=== PATIENT | male | born 1990 | race Caucasian/White ===

== ENCOUNTER 2025-01-25 23:44 | Emergency (ER) | payer MEDICAID ==
[~2025-01-25] VITALS: Ht 177.8 cm; Wt 210.0 kg
[2025-01-26] MEDS: ondansetron 4mg rapidly disintigrating tab PO STA (02:19)
--- NOTE | 2025-01-26 03:17 | Physician Documentation ---
History of Present Illness Chief Complaint: Vomiting Stated Complaint: VOMITTING/ANKLE PAIN Time Seen by MD: 03:15 OK to notify your PCP?: Yes Source: patient, RN/MD, RN notes reviewed, old records Mode of Arrival: POV Exam Limitations: no limitations HPI 34 year old male presents to the emergency department for complaints of vomiting and diarrhea which began today. He states that patient threw up once an hour ago but has been experiencing diarrhea 3-4 times per hour for approximately 7 hours. Additionally patient complains of left sided ankle pain that began once last week but returned this week. He denies any trauma to the area. Medication Reconciliation Allergies: Coded Allergies: amoxicillin (Verified Allergy, Mild, HIVES, 01/25/25) Scheduled PRN ONDANSETRON ODT 4mg tablet (Ondansetron Odt), 1 TAB PO Q6H PRN PRN for nausea/vomiting Past Medical History Past Medical History: Endocarditis Past Surgical History: no surgical history Smoking Status: Former smoker Alcohol Use: None Drug Use: none Review of Systems All Other Systems at this time: Reviewed and Negative ROS As stated above in the HPI, otherwise all systems are reviewed and negative. Physical Exam Vital Signs: RN Vital Signs have been reviewed: Yes, Temperature: 98.4, Source: Temporal, Heart Rate: 89, Respiratory Rate: 18, BP: 177/99, Pulse Oximetry: 18, Weight: 210.000 Oxygen Flow Rate: 0 Pulse Oximetry Reflects: adequate oxygenation Physical Exam General: The patient is well developed, well nourished, nontoxic appearing and is in no acute distress. Skin: [place], warm and dry with no rashes. HEENT: Head was normocephalic and atraumatic. Eyes - pupils equal, round, reactive to light and accommodation. Extraocular movements were intact. Conjun ctivae were nonicteric. Ears - bilateral tympanic membranes were normal. The mouth and oropharynx were clear with moist mucous membranes. There were no pharyngeal exudates or erythema. Neck: Supple and nontender. There was no jugular venous distention, lymphadenopathy, thyromegaly or masses. Chest: Clear to auscultation bilaterally without wheezes, rales or rhonchi. No accessory muscle use. No dullness to percussion. Heart: Rate regular and rhythmic. S1, S2. No murmurs. Palpation of the chest wall was normal. No rubs or thrills. Abdomen: Soft, nontender and nondistended. Positive bowel sounds. No guarding or rebound. No hepatosplenomegaly or palpable masses. Extremities: No cyanosis, clubbing or edema. The patient moves all extremities. Pulses were equal and symmetric. Neurologic: Cranial nerves II-XII were intact. Sensation was intact to light touch throughout. Motor strength was 5/5 in all four extremities. Deep tendon reflexes were intact in both upper and lower extremities. Psychologic: The patient was oriented to person, place and time. The patient demonstrated appropriate judgement and insight. Progress Results/Orders Reviewed/noted all lab results: Yes Results/Orders Completed Orders - ALONZO LEONE MD Ondansetron Disint. Tablet (Zofran Odt T (01/26/25 02:14) Medications Received in ER Medications (Trade) Dose Ordered Sig/Juan Route PRN Reason Start Time Stop Time Status Last Admin Dose Admin (Zofran ODT tablet) 4 mg ONCE STAT PO 01/26/25 02:14 01/26/25 02:15 DC 01/26/25 02:19 4 MG Vital Signs 01/25/25 23:49 Temp 98.4 Pulse 89 Resp 18 B/P (MAP) 177/99 Pulse Ox 18 O2 Flow Rate 0 Re-Evaluation Re-Evaluation : Re-Evaluation: Improved Progress Patient was seen and examined. Patient was given reassurance. Patient received Zofran as well as fluid hydration is feeling much better. Patient has no fever vomiting and diarrhea seems to have resolved. Patient was then given reassura nce and discharged home. Laboratory work CBCs 12.9 slightly elevated chemistry CO2 within normal limits of 24.9 magnesium potassium and chemistry all within normal limits. Medical Decision Making Additional info obtained from: old records Differential Dx:Considerations: Include: Cholangitis, Cholelithasis, Esophagitis, Gastritis/PUD, Gastroenteritis, Pancreatitis, Other Departure Time of Disposition: :25 Disposition: 01 HOME / SELF CARE / HOMELESS Impression: Primary Impression: Gastroenteritis Additional Impression: Dehydration Condition: Stable Discharge Instructions: Viral Gastroenteritis, Adult Referrals: NO PRIMARY CARE PROVIDER (PCP) Prescriptions ONDANSETRON ODT 4mg tablet (ONDANSETRON ODT) 4 Mg Tab.rapdis 1 TAB PO Q6H PRN PRN for nausea/vomiting for 4 Days, #16 TAB 0 Refills Prov: ALONZO LEONE MD 01/26/25 Education Educated: Patient Educated regarding: diagnosis, need for follow up Signature Scribe Signature: Scribed for Alonzo Leone MD by Misty Gates . 01/26/25 03:26 Attestation: The note accurately reflects work and decisions made by me.Alonzo Leone MD 01/26/25 03:16 ALONZO LEONE MD Jan 26, 2025 03:16 MISTY CRUZ Jan 26, 2025 03:26
[2025-01-26] MEDS ORDERED: ONDA-243 PO (03:27)
[2025-01-26] MEDS: normal saline 1000ML IV soln IVB ONE (03:58)
[2025-01-26 04:01] LABS: BASOPHILS % (AUTO) 0.3 % (0-1); EOSINOPHILS # (AUTO) 0.2 X10'3 (0-0.9); EOSINOPHILS % (AUTO) 1.4 % (0-6); HEMATOCRIT 47.8 % (42.0-52.0); HEMOGLOBIN 16.4 g/dl (14.0-17.9); LYMPHOCYTES # (AUTO) 1.7 X10'3 (1.1-4.8); LYMPHOCYTES % (AUTO) 13.3 % (21-51); MEAN CORPUSCULAR HEMOGLOBIN 28.9 PG (27.0-31.0); MEAN CORPUSCULAR HGB CONC 34.4 g/dL (33.0-36.5); MEAN CORPUSCULAR VOLUME 84.1 FL (78-98); MEAN PLATELET VOLUME 8.7 FL (7.4-10.4); MONOCYTES # (AUTO) 0.9 X10'3 (0-0.9); MONOCYTES % (AUTO) 6.6 % (2-12); NEUTROPHILS # (AUTO) 10.1 X10'3 (1.8-7.7); NEUTROPHILS % (AUTO) 78.4 % (42-75); PLATELET COUNT 323 X10'3 (140-440); RED BLOOD COUNT 5.68 X10'6 (4.70-6.10); RED CELL DISTRIBUTION WIDTH 13.8 % (11.5-14.5); WHITE BLOOD COUNT 12.9 X10'3 (4.5-11.0)
[2025-01-26 04:03] LABS: ALBUMIN 4.7 G/DL (3.4-5.0); ANION GAP 9 (8-16); BLOOD UREA NITROGEN 16 MG/DL (7-18); BUN/CREATININE RATIO 14.5 (10.0-20.0); CALCIUM 9.4 MG/DL (8.5-10.1); CHLORIDE 107 MMOL/L (99-107); GLUCOSE 105 MG/DL (70-104); MAGNESIUM 2.4 MG/DL (1.5-2.4); POTASSIUM 4.1 MMOL/L (3.5-5.1); SODIUM 141 MMOL/L (135-145); TOTAL CARBON DIOXIDE 24.9 MMOL/L (24-32); eCRCL 97 ML/MIN; eGFR 76 ML/MIN
[2025-01-26 04:52] VITALS: BP 159/89; PULSE 80; RESP 18; TEMP 98.6; O2SAT 99
== END 2025-01-26 04:53 | disposition home or self-care (01) ==
LOC: ER 23:45
DX: K52.9 Noninfective gastroenteritis and colitis, unspecified (principal); E86.0 Dehydration; M25.562 Pain in left knee; Z88.1 Allergy status to other antibiotic agents
CPT/HCPCS: 36415; 80048; 83735; 85025; 96360; 99283; J7030